=== PATIENT | female | born 1985 | race Caucasian/White ===

== ENCOUNTER 2023-10-20 13:39 | Emergency (ER) | payer OTHER ==
[~2023-10-20] VITALS: Ht 162.6 cm; Wt 68.0 kg
[2023-10-20 13:46] VITALS: BP_SYST 114; PULSE 77; RESP 16; TEMP 98.3; O2SAT 99
[2023-10-20] MEDS ORDERED: OLOP5DRO20 EACH EYE (14:51)
[2023-10-20 15:15] VITALS: BP_SYST 114; PULSE 77; RESP 16; TEMP 98.3; O2SAT 99
== END 2023-10-20 15:15 | disposition home or self-care (01) ==
LOC: SED 13:39
DX: T26.91XA Corrosion of right eye and adnexa, part unspecified, initial encounter (principal); Z88.8 Allergy status to other drugs, medicaments and biological substances; Y93.89 Activity, other specified; Y92.89 Other specified places as the place of occurrence of the external cause; Y99.8 Other external cause status
CPT/HCPCS: 99282